=== PATIENT | female | born 1970 ===

== ENCOUNTER 2018-12-15 19:12 | Inpatient (IN) ==
[2018-12-15] MEDS ORDERED: cefTRIAXone 1,000 MG in SODIUM CHLORIDE 0.9% 100 ML IV STA (20:00)
[2018-12-15] MEDS ORDERED: diphenhydrAMINE 50 MG/1 ML VIAL IV STA (20:39)
[2018-12-15] MEDS ORDERED: GLUCAGON 1 MG VIAL IM PRN (21:38)
[2018-12-15] MEDS ORDERED: DEXTROSE 50% 25 GM/50 ML SYRINGE IV PRN (21:38)
[2018-12-15] MEDS ORDERED: ONDANSETRON 4 MG/2 ML VIAL IV PRN (21:38)
[2018-12-15] MEDS ORDERED: ACETAMINOPHEN 325 MG TABLET PO PRN (21:38)
[2018-12-15] MEDS ORDERED: amLODIPine 5 MG TABLET PO ONE (23:24)
[2018-12-16] MEDS: SODIUM CHLORIDE 0.9% 1,000 ML IV SCH ×3 (01:36→17:23)
[2018-12-16 06:54] LABS: Basophils % 0.3 % (0.0-0.8); Eosinophils # 0.1 10*3/uL (0.0-0.87); Eosinophils % 1.2 % (0.00-10.9); Hematocrit 23.3 VOL% (35.7-47.0); Hemoglobin 7.5 GM/DL (12.0-16.0); Immature Granulocytes % 0.3 %; Immature Granulocytes Absolute 0.03 #; Lymphocytes # 1.4 10*3/uL (1.4-4.0); Lymphocytes % 13.8 % (21.3-54.2); Mean Corpuscular HGB Conc 32.2 GM/DL (32-36); Mean Corpuscular Volume 88.9 FL (87-102); Mean Platelet Volume 10.6 FL (9.6-12.0); Monocytes % 4.9 % (1.7-12.7); Neutrophils % 79.5 % (38.7-73.9); Platelet Count 167 T/CUMM (130-400); Red Blood Count 2.62 MC/CUMM (3.8-5.5); Red Cell Distribution Width 14.4 % (9.3-17.3); White Blood Count 9.8 T/CUMM (4-12)
[2018-12-16] MEDS: amLODIPine 5 MG TABLET PO SCH (08:11)
[2018-12-16] MEDS: LEVOFLOXACIN INJ 250 MG in PREMIX 1 EACH IV SCH (08:11)
[2018-12-16] MEDS: PANTOPRAZOLE 40 MG TABLET PO SCH (08:11)
[2018-12-16] MEDS: INSULIN REGULAR 100 UNIT/ML SUBCUT SCH ×4 (08:38→21:56)
[2018-12-16 10:30] LABS: Alanine Aminotransferase 13 U/L (13-56); Albumin 2.6 G/DL (3.4-5.0); Alkaline Phosphatase 138 U/L (45-117); Aspartate Amino Transferase 19 U/L (0-37); Bilirubin,Total < 0.39 MG/DL (0.2-1.0); Blood Urea Nitrogen 103 MG/DL (7-18); Glucose 69 MG/DL (74-106); Osmolality,Calculated 310.3 MOS/KG (273-304); Total Protein 6.2 G/DL (6.4-8.3)
[2018-12-16 10:34] LABS: Calcium < 5.0 MG/DL (8.5-10.1)
[2018-12-16 14:09] LABS: % Iron Saturation 20.1 % (18-50)
[2018-12-16] MEDS ORDERED: CALCIUM GLUCONATE 2,000 MG in SODIUM CHLORIDE 0.9% 100 ML IV ONE (14:30)
[2018-12-16 15:02] LABS: Hepatitis B Core IgM Quant < 0.05 Index; Hepatitis B Surface Ag Quant < 0.10 Index; Hepatitis B Surface Ag Result Negative (Negative); Hepatitis C Virus Ab Quant < 0.02 Index; Hepatitis C Virus Ab Result Negative (Negative)
[2018-12-17] MEDS: SODIUM CHLORIDE 0.9% 1,000 ML IV SCH ×2 (03:25→13:46)
[2018-12-17 06:45] LABS: Blood Urea Nitrogen 104 MG/DL (7-18); Glucose 109 MG/DL (74-106)
[2018-12-17 06:55] LABS: Calcium < 5.0 MG/DL (8.5-10.1)
[2018-12-17] MEDS ORDERED: HEPARIN 5,000 UNIT/1 ML VIAL ONE (07:08)
[2018-12-17] MEDS ORDERED: BUPIVACAINE 0.5% 50 ML VIAL ONE (07:08)
[2018-12-17] MEDS ORDERED: LIDOCAINE 1%/EPI INJ 20 ML VIAL ONE (07:08)
[2018-12-17] MEDS ORDERED: CALCIUM GLUCONATE 2,000 MG in SODIUM CHLORIDE 0.9% 100 ML IV ONE (07:10)
[2018-12-17] MEDS: INSULIN REGULAR 100 UNIT/ML SUBCUT SCH ×4 (08:46→21:58)
[2018-12-17] MEDS: PANTOPRAZOLE 40 MG TABLET PO SCH (09:43)
[2018-12-17] MEDS: amLODIPine 5 MG TABLET PO SCH (09:43)
[2018-12-17] MEDS ORDERED: MAGNESIUM SULF RIDER 2 GM in PREMIX 1 EACH IV ONE (10:13)
[2018-12-17 11:17] LABS: Protein/Creatinine Ratio,Urine 2.6 RATIO
[2018-12-17 12:00] LABS: Microalbum/Creat Ratio Random 1589.7 RATIO (0-30)
[2018-12-17] MEDS ORDERED: HEPARIN 10,000 UNIT/10 ML VIAL IV PRN (13:30)
[2018-12-17] MEDS: CALCITRIOL 0.25 MCG CAPSULE PO SCH (14:07)
[2018-12-17] MEDS: CALCIUM ACETATE 667 MG CAPSULE PO SCH (17:22)
[2018-12-18] MEDS: amLODIPine 5 MG TABLET PO SCH (08:57)
[2018-12-18] MEDS: CALCITRIOL 0.25 MCG CAPSULE PO SCH (08:57)
[2018-12-18] MEDS: CALCIUM ACETATE 667 MG CAPSULE PO SCH ×3 (08:57→18:03)
[2018-12-18] MEDS: INSULIN REGULAR 100 UNIT/ML SUBCUT SCH ×4 (08:58→21:02)
[2018-12-18] MEDS: PANTOPRAZOLE 40 MG TABLET PO SCH (08:58)
[2018-12-18] MEDS: LEVOFLOXACIN INJ 250 MG in PREMIX 1 EACH IV SCH (08:58)
[2018-12-18] MEDS ORDERED: EPOETIN ALFA 2,000 UNIT/1 ML VIAL IV PRN (09:36)
[2018-12-18] MEDS ORDERED: IRON SUCROSE 100 MG/5 ML VIAL IV SCH (10:00)
[2018-12-19 05:05] LABS: Basophils % 0.5 % (0.0-0.8); Eosinophils # 0.2 10*3/uL (0.0-0.87); Eosinophils % 1.8 % (0.00-10.9); Hemoglobin 7.4 GM/DL (12.0-16.0); Immature Granulocytes % 0.6 %; Immature Granulocytes Absolute 0.05 #; Lymphocytes # 1.1 10*3/uL (1.4-4.0); Mean Corpuscular HGB Conc 32.2 GM/DL (32-36); Mean Corpuscular Volume 89.5 FL (87-102); Mean Platelet Volume 10.9 FL (9.6-12.0); Monocytes % 7.4 % (1.7-12.7); Neutrophils % 76.7 % (38.7-73.9); Platelet Count 153 T/CUMM (130-400); Red Blood Count 2.57 MC/CUMM (3.8-5.5); Red Cell Distribution Width 13.8 % (9.3-17.3); White Blood Count 8.5 T/CUMM (4-12)
[2018-12-19 05:23] LABS: Calcium 6.6 MG/DL (8.5-10.1); Osmolality,Calculated 287.4 MOS/KG (273-304)
[2018-12-19] MEDS: INSULIN REGULAR 100 UNIT/ML SUBCUT SCH ×4 (07:35→20:46)
[2018-12-19] MEDS: CALCIUM ACETATE 667 MG CAPSULE PO SCH ×3 (07:35→16:54)
[2018-12-19] MEDS: PANTOPRAZOLE 40 MG TABLET PO SCH (08:07)
[2018-12-19] MEDS: amLODIPine 5 MG TABLET PO SCH (08:07)
[2018-12-19] MEDS: CALCITRIOL 0.25 MCG CAPSULE PO SCH (08:07)
[2018-12-20] MEDS: PANTOPRAZOLE 40 MG TABLET PO SCH (08:47)
[2018-12-20] MEDS: amLODIPine 5 MG TABLET PO SCH (08:48)
[2018-12-20] MEDS: CALCITRIOL 0.25 MCG CAPSULE PO SCH (08:48)
[2018-12-20] MEDS: CALCIUM ACETATE 667 MG CAPSULE PO SCH ×3 (08:48→18:08)
[2018-12-20] MEDS: INSULIN REGULAR 100 UNIT/ML SUBCUT SCH ×3 (08:49→18:08)
[2018-12-20 10:56] VITALS: BP 158/89
== END 2018-12-20 17:20 | disposition home or self-care (01) | DRG 674 ==
LOC: N.ED 19:12 → N.EDINP 21:38 → N.5E 22:25
PROVIDERS: ADMIT Internal Medicine; ATTEND Internal Medicine